=== PATIENT | male | born 1990 | race Caucasian/White ===

== ENCOUNTER 2018-05-07 23:51 | Emergency (ER) | payer SELFPAY ==
[2018-05-08 00:06] VITALS: BP 137/85; PULSE 84; TEMP 98; BMI 34.4
--- NOTE | 2018-05-08 00:59 | PDOC ---
Attending Attestation - Resident Resident Name: Marilin Ramachandran - ED Attending Attestation I have performed the following: I have examined & evaluated the patient, The case was reviewed & discussed with the resident, I agree w/resident's findings & plan, Exceptions are as noted - Medical Decision Making 05/08/18 00:58 I, Dr. Zahra Booker, DO, attest that this document has been prepared under my direction and personally reviewed by me in its entirety. I further attest, that it accurately reflects all work, treatment, procedures and medical decision -making performed by me. 05/08/18 01:26 a/p: 28yo male with hx of migraines after a closed head injury 2 years presents for eval of his typical [place] -however, recent viral syndrome - n/v last friday and then diarrhea - watery since friday. -decreased po intake and states watery stool everytime he eats -no meningeal signs -no head trauma -no f/c -no neck pain -no change in [place] -will check labs, will hydrate, reglan -pt denies travel, no sick contacts, no recent abx <Zahra Booker - Last Filed: 05/08/18 01:26> - HPI HPI: 05/08/18 01:31 The patient is a 28 year old male with no significant past medical history who presented to the ED complaining of right sided headaches for one week. Patient states his headache is a throbbing like sensation, constant and radiates to the back of his right eye. Patient also reports photosensitivity, two episodes of vomiting last week, and runny nose associated with present symptoms. Patient reports a history of migraine headaches and he usually takes Excedrin and the pain would subside. This time the pain was not alleviated by medications. Patient also reports non bloody watery diarrhea every time he eats or drinks, which started around the same time as the migraine last week. Patient denies any recent antibiotic use. Denies any recent travel. Denies sick contact. Denies any diet changes Denies any dizziness, loss of consciousness, acute vision changes, chest pain, palpitations, shortness of breath, fever, chills, nausea, vomiting, dysuria, hematuria, melena, hematochezia, hematemesis. Denies any family history of migraines, malignancies, or malignancy - Physicial Exam PE: 05/08/18 01:31 Constitutional: Awake, alert, oriented. No acute distress. Head: Normocephalic. Atraumatic Eyes: PERRL. EOMI. Conjunctivae are not pale. ENT: + Dry mucous membranes. Posterior pharynx without exudates or erythema. Uvula midline. Neck: Supple. Full ROM. No lymphadenopathy. Cardiovascular: + Slight tachycardia. Regular rhythm. S1, S2 regular. Distal pulses are 2+ and symmetric. Pulmonary/Chest: No evidence of respiratory distress. Clear to auscultation bilaterally No wheezing, rales or rhonchi. Abdominal: Soft and non-distended. There is no tenderness. No rebound, guarding or rigidity. No organomegaly. No palpable masses. Good bowel sounds. Back: No CVA tenderness. Musculoskeletal: No edema. No cyanosis. No clubbing. Full range of motion in all extremities. Nocalf tenderness. Radial/pedal pulses are intact and 2+ bilaterally Skin: Skin is warm and dry. No petechiae. No purpura. Neurological: Alert and oriented to person, place, and time. Cranial nerves II -XII are grossly intact. Normal speech. Strength is grossly symmetric. No sensory deficits. Psychiatric: Good eye contact. Normal interaction, affect and behavior. <Kitty Berrios - Last Filed: 05/08/18 01:32> Attestations - Attestations 05/08/18 01:32 Documentation prepared by Kitty Berrios, acting as medical bill processor for Zahra Booker DO <Kitty Berrios - Last Filed: 05/08/18 01:32>
[2018-05-08] MEDS ORDERED: ACETAMINOPHEN 325 MG TABLET (FP) PO ONE (01:15)
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
[2018-05-08] MEDS ORDERED: METOCLOPRAMIDE HCL INJECTION 10 MG/2 ML VIAL IVPUSH ONE (01:16)
[2018-05-08] MEDS ORDERED: SODIUM CHLORIDE 1,000 ML IV STA (01:16)
[2018-05-08] MEDS ORDERED: METOCLOPRAMIDE HCL INJECTION 10 MG/2 ML VIAL ONE (01:28)
[2018-05-08] MEDS ORDERED: ACETAMINOPHEN 325 MG TABLET (FP) ONE (01:28)
[2018-05-08 01:52] LABS: BASO % 0.4 % (0-2.0); EOS % 0.8 % (0-4.5); HEMATOCRIT 41.7 % (35.4-49); HEMOGLOBIN 14.7 GM/dL (11.7-16.9); LYMPH % 11.9 % (8-40); MCH 31.9 pg (25.7-33.7); MCHC 35.3 g/dl (32.0-35.9); MEAN CELL VOLUME 90.4 fl (80-96); MONO % 5.6 % (3.8-10.2); NEUT % 81.3 % (42.8-82.8); PLATELET COUNT 229 K/MM3 (134-434); RBC 4.61 M/mm3 (4.00-5.60); RDW 14.2 % (11.9-15.9); WHITE BLOOD COUNT 10.9 K/mm3 (4.0-10.0)
[2018-05-08 02:19] LABS: ALBUMIN 3.9 g/dl (3.4-5.0); ALK PHOS 72 U/L (45-117); ANION GAP 6 MMOL/L (8-16); BILIRUBIN,TOTAL 0.2 mg/dL (0.2-1); BLOOD UREA NITROGEN 11 mg/dL (7-18); CALCIUM 8.8 mg/dL (8.5-10.1); CHLORIDE 104 mmol/L (98-107); CO2 27 mmol/L (21-32); CREATININE 0.8 mg/dL (0.55-1.3); GLUCOSE,RANDOM 111 mg/dL (74-106); POTASSIUM 4.3 mmol/L (3.5-5.1); SGOT/AST 21 U/L (15-37); SGPT/ALT 21 U/L (13-61); SODIUM 137 mmol/L (136-145); TOT PROT 7.8 g/dl (6.4-8.2)
--- NOTE | 2018-05-08 02:57 | PDOC ---
*Physical Exam - Vital Signs Last Vital Signs Temp Pulse Resp BP Pulse Ox 98.0 F 84 17 137/85 99 05/08/18 00:04 05/08/18 00:04 05/08/18 00:04 05/08/18 00:04 05/08/18 00:04 ED Treatment Course - LABORATORY CBC & Chemistry Diagram: 05/08/18 01:30 05/08/18 01:30 - ADDITIONAL ORDERS Additional order review: Laboratory Results 05/08/18 01:30 Sodium 137 Potassium 4.3 Chloride 104 Carbon Dioxide 27 Anion Gap 6 L BUN 11 Creatinine 0.8 Creat Clearance w eGFR > 60 Random Glucose 111 H Calcium 8.8 Total Bilirubin 0.2 AST 21 ALT 21 Alkaline Phosphatase 72 Total Protein 7.8 Albumin 3.9 05/08/18 01:30 RBC 4.61 MCV 90.4 MCHC 35.3 RDW 14.2 MPV 9.0 Neutrophils % 81.3 Lymphocytes % 11.9 Monocytes % 5.6 Eosinophils % 0.8 Basophils % 0.4 - Medications Given in the ED: ED Medications Discontinued Medications Generic Name Dose Route Start Last Admin Trade Name Yusefq PRN Reason Stop Dose Admin Acetaminophen 650 mg 05/08/18 01:15 05/08/18 01:47 Tylenol - PO 05/08/18 01:16 650 mg ONCE ONE Administration Sodium Chloride 1,000 mls @ 1,000 mls/hr 05/08/18 01:16 05/08/18 01:47 Normal Saline - IV 05/08/18 02:15 1,000 mls/hr ASDIR STA Administration Metoclopramide HCl 10 mg 05/08/18 01:16 05/08/18 01:47 Reglan Injection - IVPUSH 05/08/18 01:17 10 mg ONCE ONE Administration Medical Decision Making - Medical Decision Making 28 yo male pmh migraines presents to ED for 1 week of worsening BEAN, fevers, diarrhea and nausea. Pts BEAN is not pounding like past migrans and is described as sharp, non radiating and well localized. Pt denies having PCP DDX: gastroenteritis, migraine headache, inflammatory etiology, infectious etiology. -1L IV NS ordered -Reglan ordered -Tylenol 1000mg PO ordered -CBC and CMP ordered 05/08/18 03:04 Labs WNL, normal potassium *DC/Admit/Observation/Transfer Diagnosis at time of Disposition: Migraine Qualifiers: Migraine type: without aura Status migrainosus presence: without status migrainosus Intractability: intractable Qualified Code(s): G43.019 - Migraine without aura, intractable, without status migrainosus - Discharge Dispostion Disposition: HOME Condition at time of disposition: Stable Decision to Admit order: No - Referrals [place] [facility] [place] [facility] [place] Group] - Patient Instructions Printed Discharge Instructions: DI for Headache Additional Instructions: Please follow up with Primary Care Doctors office referred to you within the next 24-48 hours. Try to increased clear fluid intake and use over the counter tylenol and motrin for headaches and fevers every 4-6 hours. Return to the Emergency Room for new or worsening symptoms including but not limited to: fatigue, weakness, inability to eat, severe headaches, one sided weakness on your body. Thank you - Post Discharge Activity Forms/Work/School Notes: Back to Work
== END 2018-05-08 03:20 | disposition home or self-care (01) ==
LOC: JER 23:51
PROC: 3E033GC Introduction of Other Therapeutic Substance into Peripheral Vein, Percutaneous Approach (ICD-10-PCS; principal; 2018-05-07)
DX: G43.019 Migraine without aura, intractable, without status migrainosus (principal)
CPT/HCPCS: 36415; 80053; 85025; 99283-25; J7030

== ENCOUNTER 2022-07-11 12:10 | Emergency (ER) | payer OTHER ==
[2022-07-11 12:17] VITALS: BMI 36.8
[2022-07-11 13:44] LABS: PH,URINE 5.5 (5.0-8.0); URINE APPEARANCE CLEAR; URINE BILIRUBIN NEGATIVE (NEGATIVE); URINE COLOR YELLOW; URINE GLUCOSE (UA) NEGATIVE (NEGATIVE); URINE KETONE TRACE (NEGATIVE); URINE LEUK ESTERASE NEGATIVE (NEGATIVE); URINE NITRITE NEGATIVE (NEGATIVE); URINE PROTEIN NEGATIVE (NEGATIVE); URINE UROBILINOGEN 0.2 mg/dL (0.2-1.0)
[2022-07-11 13:45] LABS: BASO % 0.9 % (0-2.0); EOS % 3.4 % (0-4.5); HEMATOCRIT 40.9 % (35.4-49); HEMOGLOBIN 14.3 GM/dL (11.7-16.9); LYMPH % 21.6 % (8-40); MCH 31.6 pg (25.7-33.7); MEAN CELL VOLUME 90.2 fl (80-96); MEAN PLT VOLUME 9.4 fl (7.5-11.1); MONO % 6.5 % (3.8-10.2); NEUT % 67.6 % (42.8-82.8); PLATELET COUNT 228 10^3/uL (134-434); RBC 4.53 M/mm3 (4.00-5.60); RDW 13.9 % (11.9-15.9); WHITE BLOOD COUNT 7.7 K/mm3 (4.0-10.0)
[2022-07-11 14:12] LABS: ALBUMIN 3.7 g/dl (3.4-5.0); BLOOD UREA NITROGEN 12.5 mg/dL (7-18)
[2022-07-11 14:17] LABS: BILIRUBIN,TOTAL 0.3 mg/dL (0.2-1); TOT PROT 7.7 g/dl (6.4-8.2)
[2022-07-11 14:41] VITALS: BP 133/78; PULSE 76; RESP 19; TEMP 97.9
== END 2022-07-11 14:44 | disposition home or self-care (01) ==
LOC: JER 12:10
DX: K92.1 Melena (principal)
CPT/HCPCS: 36415; 80053; 81003; 82272; 85025; 87086; 99283-25

== ENCOUNTER 2022-11-21 23:56 | Emergency (ER) | payer OTHER ==
[2022-11-22 00:09] VITALS: RESP 18; TEMP 98.1; BMI 36.8
[2022-11-22] MEDS ORDERED: ONDANSETRON 4 MG/2 ML VIAL IVPUSH ONE (00:55)
[2022-11-22] MEDS ORDERED: LACTATED RINGERS SOLUTION 1000 ML INFUS.BAG IV ONE (00:55)
[2022-11-22] MEDS ORDERED: FAMOTIDINE 20 MG/50 ML IVPB 20 MG/50 ML MG IVPB ONE ×2 (00:57→01:06)
[2022-11-22] MEDS ORDERED: ACETAMINOPHEN 1000 MG/100 ML BAG IVPB ONE (00:58)
[2022-11-22] MEDS ORDERED: ONDANSETRON 4 MG/2 ML VIAL ONE (01:06)
[2022-11-22] MEDS ORDERED: ACETAMINOPHEN INJECTION 100 ML IVPB ONE (01:06)
[2022-11-22 01:30] LABS: BASO % 0.8 % (0-2.0); HEMATOCRIT 44.9 % (35.4-49); HEMOGLOBIN 15.5 GM/dL (11.7-16.9); LYMPH % 22.8 % (8-40); MCH 30.8 pg (25.7-33.7); MCHC 34.5 g/dl (32.0-35.9); MEAN CELL VOLUME 89.3 fl (80-96); MEAN PLT VOLUME 8.6 fl (7.5-11.1); MONO % 8.1 % (3.8-10.2); NEUT % 67.3 % (42.8-82.8); PLATELET COUNT 276 10^3/uL (134-434); RBC 5.03 M/mm3 (4.00-5.60); RDW 13.7 % (11.9-15.9); WHITE BLOOD COUNT 9.3 K/mm3 (4.0-10.0)
[2022-11-22 01:50] VITALS: BP 144/91; PULSE 60
[2022-11-22 01:57] LABS: POTASSIUM 3.5 mmol/L (3.5-5.1)
[2022-11-22 01:59] LABS: ALBUMIN 4.3 g/dl (3.4-5.0); CALCIUM 9.6 mg/dL (8.5-10.1)
[2022-11-22 02:00] LABS: BLOOD UREA NITROGEN 10.6 mg/dL (7-18)
[2022-11-22 02:02] LABS: CREATININE 1.1 mg/dL (0.55-1.3)
[2022-11-22 02:04] LABS: BILIRUBIN,TOTAL 0.6 mg/dL (0.2-1); TOT PROT 8.5 g/dl (6.4-8.2)
[2022-11-22] MEDS ORDERED: MAG HYDROX/AL HYDROX/SIMETH 30 ML UNIT-DOSE CUP PO ONE (02:13)
[2022-11-22] MEDS ORDERED: MAG HYDROX/AL HYDROX/SIMETH 30 ML UNIT-DOSE CUP ONE (02:40)
== END 2022-11-22 03:26 | disposition home or self-care (01) ==
LOC: JER 23:56
PROC: 3E033GC Introduction of Other Therapeutic Substance into Peripheral Vein, Percutaneous Approach (ICD-10-PCS; principal; 2022-11-22)
PROC: 3E033GC Introduction of Other Therapeutic Substance into Peripheral Vein, Percutaneous Approach (ICD-10-PCS; 2022-11-22)
PROC: 3E033GC Introduction of Other Therapeutic Substance into Peripheral Vein, Percutaneous Approach (ICD-10-PCS; 2022-11-22)
DX: R07.9 Chest pain, unspecified (principal); R11.2 Nausea with vomiting, unspecified; R19.7 Diarrhea, unspecified
CPT/HCPCS: 36415; 71046-TC-FY; 80053; 83690; 85025; 93005; 93010; 99285-25

== ENCOUNTER 2023-05-22 22:31 | Emergency (ER) | payer OTHER ==
[2023-05-22 22:35] VITALS: BP 154/101; PULSE 96; RESP 18; TEMP 98.6; BMI 35.2
[2023-05-22] MEDS ORDERED: ACETAMINOPHEN 500 MG TABLET (FP) PO ONE (23:09)
[2023-05-22] MEDS ORDERED: ACETAMINOPHEN 325 MG TABLET (FP) ONE (23:16)
[2023-05-22] MEDS ORDERED: DIPHTH,PERTUSS(ACELL),TET 0.5 ML DISP.SYRIN IM ONE (23:18)
[2023-05-22] MEDS ORDERED: SODIUM CHLORIDE 0.9% 500 ML INFUS.BAG IV ONE (23:19)
[2023-05-22] MEDS ORDERED: ACETAMINOPHEN 1000 MG/100 ML BAG IVPB ONE (23:19)
[2023-05-22] MEDS ORDERED: METOCLOPRAMIDE HCL INJECTION 10 MG/2 ML VIAL IM ONE (23:19)
[2023-05-22] MEDS ORDERED: METOCLOPRAMIDE HCL INJECTION 10 MG/2 ML VIAL IVPUSH ONE (23:25)
[2023-05-23] MEDS ORDERED: METOCLOPRAMIDE HCL INJECTION 10 MG/2 ML VIAL ONE (00:50)
[2023-05-23] MEDS ORDERED: DIPHTH,PERTUSS(ACELL),TET 0.5 ML DISP.SYRIN IM ONE ×2 (00:50)
[2023-05-23 00:59] LABS: BASO % 0.4 % (0-2.0); EOS % 0.1 % (0-4.5); HEMATOCRIT 46.8 % (35.4-49); HEMOGLOBIN 15.7 GM/dL (11.7-16.9); LYMPH % 7.8 % (8-40); MCH 30.7 pg (25.7-33.7); MCHC 33.6 g/dl (32.0-35.9); MEAN CELL VOLUME 91.2 fl (80-96); MEAN PLT VOLUME 8.9 fl (7.5-11.1); MONO % 6.9 % (3.8-10.2); NEUT % 84.8 % (42.8-82.8); PLATELET COUNT 271 10^3/uL (134-434); RBC 5.13 M/mm3 (4.00-5.60); RDW 13.8 % (11.9-15.9); WHITE BLOOD COUNT 17.7 K/mm3 (4.0-10.0)
[2023-05-23 01:25] LABS: POTASSIUM 3.9 mmol/L (3.5-5.1)
[2023-05-23 01:28] LABS: CALCIUM 9.3 mg/dL (8.5-10.1)
[2023-05-23 01:29] LABS: BLOOD UREA NITROGEN 11.7 mg/dL (7-18)
[2023-05-23 01:32] LABS: CREATININE 1.1 mg/dL (0.55-1.3)
[2023-05-23 01:34] LABS: TOT PROT 8.5 g/dl (6.4-8.2)
[2023-05-23] MEDS ORDERED: BACITRACIN ZINC 15 GM TUBE TOPICAL OINTMENT ONE (02:17)
== END 2023-05-23 02:21 | disposition home or self-care (01) ==
LOC: JER 22:31
PROC: 3E033GC Introduction of Other Therapeutic Substance into Peripheral Vein, Percutaneous Approach (ICD-10-PCS; principal; 2023-05-22)
PROC: 3E0234Z Introduction of Serum, Toxoid and Vaccine into Muscle, Percutaneous Approach (ICD-10-PCS; 2023-05-22)
DX: R51.9 Headache, unspecified (principal); R11.0 Nausea; V89.2XXA Person injured in unspecified motor-vehicle accident, traffic, initial encounter; Y92.410 Unspecified street and highway as the place of occurrence of the external cause; Y93.01 Activity, walking, marching and hiking
CPT/HCPCS: 36415; 70450-TC; 71046-TC-FY; 72125-TC; 72170-TC-FY; 80053; 85025; 90715; 93005; 93010; 99285-25